=== PATIENT | male | born 1985 | race Two or more races ===

== ENCOUNTER → 2017-03-16 | Outpatient (REF) ==
--- NOTE | 2017-03-16 09:53 | DI ---
Exam: Two x-rays of the chest. Comparison: 03/24/2015. Reason for exam: Screening. FINDINGS: No pneumothorax, pleural effusion, or focal consolidation. The cardiac silhouette is not enlarged. The imaged osseous structures are unremarkable without acute fracture. Impression: No acute cardiopulmonary process.
== END ==
LOC: RAD 09:35
DX: Z02.89 Encounter for other administrative examinations (principal)